=== PATIENT | male | born 1965 | race Caucasian/White ===

== ENCOUNTER 2016-08-18 22:13 | Emergency (ER) | payer MEDICARE ==
[~2016-08-18] VITALS: Ht 182.9 cm; Wt 78.0 kg
[~2016-08-18 22:13] MED LIST: CLON0.2T PO; MELO-1 PO; PERC7.5T13 PO; ZANA4CAP PO
[2016-08-18 22:25] VITALS: BP 85/60; PULSE 89; RESP 16; TEMP 98; O2SAT 97
[2016-08-18] MEDS ORDERED: DIPHTH/TETANUS/ACEL PERTUSSIS (BOOSTER) 0.5 ML VIAL/PFS IM ONE (22:30)
[2016-08-18] MEDS ORDERED: SODIUM CHLOR 0.9% 1000 ML INJ 1,000 ML IV ONE (22:30)
[2016-08-18] MEDS ORDERED: SODIUM CHLORIDE 0.9% FLUSH 5 ML FLUSH IVF PRN (22:30)
[2016-08-18 22:33] VITALS: BP 99/63; PULSE 74; RESP 16; O2SAT 97
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
[2016-08-18 23:13] LABS: AUTOMATED NEUTROPHIL # 10.8 TH/MM3 (1.8-7.7); BASOPHIL # 0.4 TH/MM3 (0-0.2); BASOPHIL % 2.9 % (0.0-2.0); EOSINOPHIL # 0.1 TH/MM3 (0-0.4); EOSINOPHIL % 0.7 % (0.0-4.0); HEMATOCRIT 41.4 % (39.0-51.0); LYMPH % 21.8 % (9.0-44.0); LYMPHOCYTE # 3.3 TH/MM3 (1.0-4.8); MEAN CELL VOLUME 95.7 FL (80.0-100.0); MEAN CORPUSCULAR HEMOGLOBIN 33.5 PG (27.0-34.0); MONO % 4.4 % (0.0-8.0); NEUT % 70.2 % (16.0-70.0); RED BLOOD COUNT 4.32 MIL/MM3 (4.50-5.90); WHITE BLOOD COUNT 15.3 TH/MM3 (4.0-11.0)
[2016-08-18 23:14] LABS: HEMO FLAGS DIFF FINAL
[2016-08-18 23:15] LABS: PLATELET COUNT 172 TH/MM3 (150-450)
[2016-08-18 23:37] VITALS: BP 99/63; PULSE 72; RESP 16; O2SAT 97
[2016-08-18 23:38] LABS: CHLORIDE 110 MEQ/L (98-107); POTASSIUM 3.8 MEQ/L (3.5-5.1); SODIUM (NA) 142 MEQ/L (136-145)
[2016-08-18 23:40] VITALS: BP 138/75; PULSE 61; RESP 16; O2SAT 98
[2016-08-18 23:42] LABS: ANION GAP 7 MEQ/L (5-15); BICARBONATE 25.2 MEQ/L (21.0-32.0); BLOOD UREA NITROGEN 22 MG/DL (7-18)
[2016-08-18 23:45] LABS: GLOMERULAR FILTRATION RATE 49 ML/MIN (>89)
[2016-08-18 23:46] LABS: APTT (PATIENT) 24.4 SEC (24.3-30.1); PROTHROMBIN TIME - PATIENT 10.7 SEC (9.8-11.6)
[2016-08-19 00:15] VITALS: BP 171/93; PULSE 60; RESP 16; O2SAT 97
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
[2016-08-19] MEDS ORDERED: IOHEXOL 350 MG/ML 10 ML VIAL (for RAD DIAG) IV ONE (00:33)
--- NOTE | 2016-08-19 00:33 | RADHPO ---
EXAM DATE/TIME: 08/18/2016 23:57 [facility] COMPARISON: CT THORAX W CONTRAST, August 18, 2016, 23:57. INDICATIONS : Fall. Mid chest and upper abdominal trauma. IV CONTRAST: 96 cc Omnipaque 350 (iohexol) IV ; Cumulative dose for multiple exams. ORAL CONTRAST: No oral contrast ingested. RADIATION DOSE: 13.49 CTDIvol (mGy) ; Combined studies - Thorax/Abdomen/Pelvis MEDICAL HISTORY : Hypertension. Hepatitis C. SURGICAL HISTORY : None. ENCOUNTER: Initial ACUITY: 1 day PAIN SCALE: 8/10 LOCATION: upper quadrant TECHNIQUE: Volumetric scanning of the abdomen and pelvis was performed. Using automated exposure control and ad justment of the mA and/or kV according to patient size, radiation dose was kept as low as reasonably achievable to obtain optimal diagnostic quality images. FINDINGS: LOWER LUNGS: The visualized lower lungs are clear. LIVER: Homogeneous density without lesion. There is no dilation of the biliary tree. No calcified gallston es. SPLEEN: Calcified granulomas are present. PANCREAS: Within normal limits. KIDNEYS: Normal in size and shape. There is no mass, stone or hydronephrosis. ADRENAL GLANDS: Within normal limits. VASCULAR: No aneurysm. Atherosclerotic calcifications are seen. BOWEL/MESENTERY: No evidence for bowel obstruction. A small amount of free fluid is noted within the pelvis. ABDOMINAL WALL: Within normal limits. RETROPERITONEUM: There is no lymphadenopathy. BLADDER: No wall thickening or mass. REPRODUCTIVE: Within normal limits. INGUINAL: There is no lymphadenopathy or hernia. MUSCULOSKELETAL: Degenerative changes of the spine and nonacute T11 compression deformity. CONCLUSION: 1. Trace free fluid within the pelvis. 2. Otherwise unremarkable. Murray Walden MD on August 19, 2016 at 0:30 Board Certified Radiologist. This report was verified electronically.
[2016-08-19 01:10] VITALS: BP 180/106; PULSE 58; RESP 16; O2SAT 97
[2016-08-19 01:11] LABS: GLUCOSE,URINE NEG (NEG); KETONE, URINE NEG (NEG); NITRITE,URINE NEG (NEG); PH, URINE 5.5 (5.0-8.5)
[2016-08-19] MEDS ORDERED: KETOROLAC TROMETHAMINE 30 MG/ML (IVP) VIAL IV PUSH ONE (01:15)
[2016-08-19 01:19] LABS: BLOOD, URINE MOD (NEG)
[2016-08-19 01:21] LABS: URINE COLOR YELLOW (YELLW/STRAW); WBC, URINE 0-2 /hpf (0-5)
[2016-08-19 01:22] LABS: COMMENT (UR) CULT NOT INDICATED; CULTURE IF INDICATED CULT NOT INDICATED; SQUAMOUS EPITHELIAL CELL URINE 0-5 /hpf (0-5)
[2016-08-19 01:47] VITALS: BP 152/96; PULSE 60; RESP 16; O2SAT 100
[2016-08-19 01:59] VITALS: RESP 16
--- NOTE | 2016-08-19 13:27 | EKG ---
Date Performed: 08/18/2016 Time Performed: 22:35:16 PTAGE: 50 years EKG: Sinus rhythm Extensive ST-T changes may be due to myocardial ischemia Abnormal ECG PREVIOUS TRACING : 03/01/2016 12.06 Compared to previous tracing, T wave changes are now more p ronounced. DOCTOR: Vernon Alvarado Interpretating Date/Time 08/19/2016 13:26:34
== END 2016-08-19 02:13 | disposition home or self-care (01) ==
LOC: PHED 22:13
DX: S30.1XXA Contusion of abdominal wall, initial encounter (principal); S20.212A Contusion of left front wall of thorax, initial encounter; F11.20 Opioid dependence, uncomplicated; S30.811A Abrasion of abdominal wall, initial encounter; S20.312A Abrasion of left front wall of thorax, initial encounter; R94.31 Abnormal electrocardiogram [ECG] [EKG]; W18.39XA Other fall on same level, initial encounter; Y93.K1 Activity, walking an animal; I10 Essential (primary) hypertension; E78.5 Hyperlipidemia, unspecified; R73.03 Prediabetes; F17.200 Nicotine dependence, unspecified, uncomplicated; Z87.39 Personal history of other diseases of the musculoskeletal system and connective tissue; Z86.59 Personal history of other mental and behavioral disorders; Z87.19 Personal history of other diseases of the digestive system; Z87.448 Personal history of other diseases of urinary system; Z86.69 Personal history of other diseases of the nervous system and sense organs
CPT/HCPCS: 70450; 71260; 74177; 80048; 81001; 83690; 84484; 85025; 85610; 85730; 86850; 86900; 86901; 90471; 90715; 93005; 96374; 99285; J1885; J7030; Q9967

== ENCOUNTER 2016-10-10 03:26 | Inpatient (IN) | payer MEDICARE, OTHER ==
[~2016-10-10] VITALS: Ht 182.9 cm; Wt 73.9 kg
[~2016-10-10 03:26] MED LIST changes: -ZANA4CAP PO
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
[2016-10-10 06:03] VITALS: BP 104/56; PULSE 88; RESP 18; TEMP 98.4; O2SAT 99
[2016-10-10 06:41] VITALS: BP 117/68; PULSE 86; RESP 17; O2SAT 97
[2016-10-10 11:53] VITALS: BP 139/84; PULSE 73; RESP 18; O2SAT 98
[2016-10-10 13:44] LABS: AMPHETAMINE, URINE NEG (NEG); BARBITURATES, URINE NEG (NEG); COCAINE, URINE NEG (NEG)
[2016-10-10 14:46] VITALS: BP 117/78; PULSE 84; RESP 18; O2SAT 98
[2016-10-10 14:51] LABS: AUTOMATED NEUTROPHIL # 4.2 TH/MM3 (1.8-7.7); BASOPHIL # 0.1 TH/MM3 (0-0.2); BASOPHIL % 0.9 % (0.0-2.0); EOSINOPHIL # 0.2 TH/MM3 (0-0.4); EOSINOPHIL % 2.2 % (0.0-4.0); HEMO FLAGS DIFF FINAL; LYMPH % 29.6 % (9.0-44.0); MEAN CELL VOLUME 96.3 FL (80.0-100.0); MEAN CORPUSCULAR HEMOGLOBIN 33.4 PG (27.0-34.0); MEAN CORPUSCULAR HGB CONC 34.7 % (32.0-36.0); MONO % 5.9 % (0.0-8.0); NEUT % 61.4 % (16.0-70.0); PLATELET COUNT 195 TH/MM3 (150-450); RED BLOOD COUNT 3.84 MIL/MM3 (4.50-5.90); RED CELL DISTRIBUTION WIDTH 13.4 % (11.6-17.2); WHITE BLOOD COUNT 6.9 TH/MM3 (4.0-11.0)
[2016-10-10 16:21] LABS: ALKALINE PHOSPHATASE 79 U/L (45-117); TOTAL BILIRUBIN ADULT 0.5 MG/DL (0.2-1.0)
[2016-10-10 16:26] LABS: ALT (GPT) 47 U/L (12-78); ANION GAP 7 MEQ/L (5-15); AST (GOT) 34 U/L (15-37); BICARBONATE 28.4 MEQ/L (21.0-32.0); BLOOD UREA NITROGEN 14 MG/DL (7-18); CHLORIDE 107 MEQ/L (98-107); GLOMERULAR FILTRATION RATE 90 ML/MIN (>89); POTASSIUM 4.7 MEQ/L (3.5-5.1); SODIUM (NA) 142 MEQ/L (136-145)
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
[2016-10-10] MEDS ORDERED: ALUMINUM/MAGNESIUM/SIMETH 30 ML CUP PO PRN (17:45)
[2016-10-10] MEDS ORDERED: ACETAMINOPHEN 325 MG TAB PO PRN (17:45)
[2016-10-10] MEDS ORDERED: MAGNESIUM HYDROXIDE SUSP 30 ML CUP PO PRN (17:45)
[2016-10-10 18:31] VITALS: BP 101/56; PULSE 80; RESP 18; O2SAT 96
[2016-10-10 20:19] VITALS: BP 126/81; PULSE 81; RESP 18; TEMP 97.6; O2SAT 98
[2016-10-10] MEDS: ALPRAZolam 1 MG TAB PO PRN (21:01)
--- NOTE | 2016-10-10 23:22 | PD.CONS ---
[facility] Request[facility] By Primary Care Physician No Primary Care Physician Diagnoses: Past Family Social History Allergies: Coded Allergies: No Known Allergies (Unverified , 08/18/16) Physical Exam Vital Signs Vital Signs Date Time Temp Pulse Resp B/P Pulse Ox O2 Delivery O2 Flow Rate FiO2 10/10/16 20:19 97.6 81 18 126/81 98 10/10/16 18:31 80 18 101/56 96 Room Air 10/10/16 14:46 84 18 117/78 98 Room Air 10/10/16 11:53 73 18 139/84 98 Room Air 10/10/16 06:41 86 17 117/68 97 Room Air 10/10/16 06:03 98.4 88 18 104/56 99 Room Air Physical Exam TEMPLATE: GENERAL: This is a well-nourished, well-developed patient, in no apparent distress. SKIN: No rashes, ecchymoses or lesions. Cool and dry. HEAD: Atraumatic. Normocephalic. EYES: No scleral icterus. No injection or drainage. ENT: Nose without bleeding, purulent drainage. NECK: Trachea midline. No JVD or lymphadenopathy. CARDIOVASCULAR: Regular rate and rhythm without murmurs, gallops, or rubs. RESPIRATORY: Clear to auscultation. Breath sounds equal bilaterally. No wheezes , rales, or rhonchi. GASTROINTESTINAL: Abdomen soft, non-tender, nondistended. No guarding. MUSCULOSKELETAL: Extremities without clubbing, cyanosis, or edema. No calf tenderness. NEUROLOGICAL: Awake and alert. Motor and sensory grossly within normal limits. Normal speech. . Laboratory Laboratory Tests Test 10/10/16 10/10/16 13:05 13:35 Urine Opiates Screen NEG Urine Barbiturates Screen NEG Urine Amphetamines Screen NEG Urine Benzodiazepines Screen POS Urine Cocaine Screen NEG Urine Cannabinoids Screen NEG White Blood Count 6.9 Red Blood Count 3.84 Hemoglobin 12.8 Hematocrit 37.0 Mean Corpuscular Volume 96.3 Mean Corpuscular Hemoglobin 33.4 Mean Corpuscular Hemoglobin 34.7 Concent Red Cell Distribution Width 13.4 Platelet Count 195 Mean Platelet Volume 8.2 Neutrophils (%) (Auto) 61.4 Lymphocytes (%) (Auto) 29.6 Monocytes (%) (Auto) 5.9 Eosinophils (%) (Auto) 2.2 Basophils (%) (Auto) 0.9 Neutrophils # (Auto) 4.2 Lymphocytes # (Auto) 2.0 Monocytes # (Auto) 0.4 Eosinophils # (Auto) 0.2 Basophils # (Auto) 0.1 CBC Comment DIFF FINAL Differential Comment Sodium Level 142 Potassium Level 4.7 Chloride Level 107 Carbon Dioxide Level 28.4 Anion Gap 7 Blood Urea Nitrogen 14 Creatinine 0.89 Estimat Glomerular Filtration 90 Rate Random Glucose 99 Calcium Level 8.8 Total Bilirubin 0.5 Aspartate Amino Transf 34 (AST/SGOT) Alanine Aminotransferase 47 (ALT/SGPT) Alkaline Phosphatase 79 Total Protein 6.1 Albumin 3.1 Salicylates Level 3.6 Ethyl Alcohol Level LESS THAN 3 Result Diagram: 10/10/16 1335 10/10/16 1335 Sierra Mckenzie [facility] Oct 10, 2016 23:22
[2016-10-11 06:04] VITALS: BP 142/87; PULSE 73; RESP 18; TEMP 98.4; O2SAT 98
[2016-10-11 07:36] LABS: ANION GAP 6 MEQ/L (5-15); BICARBONATE 25.8 MEQ/L (21.0-32.0); BLOOD UREA NITROGEN 12 MG/DL (7-18); CHLORIDE 109 MEQ/L (98-107); GLOMERULAR FILTRATION RATE 141 ML/MIN (>89); POTASSIUM 4.4 MEQ/L (3.5-5.1); SODIUM (NA) 141 MEQ/L (136-145)
[2016-10-11 07:39] LABS: HDL CHOLESTEROL 33.6 MG/DL (40.0-60.0); LDL CHOLESTEROL 95 MG/DL (0-99)
[2016-10-11] MEDS: MELOXICAM 15 MG TAB PO SCH (08:57)
[2016-10-11] MEDS: ALPRAZolam 1 MG TAB PO PRN (08:57)
[2016-10-11] MEDS ORDERED: cloNIDine HCL 0.2 MG TAB PO SCH (09:00)
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
--- NOTE | 2016-10-11 15:16 | HHI.HP ---
Provisional Diagnosis Admission Date Oct 10, 2016 at 17:44 [place]. Adjustment disorder with mixed disturbance of emotions and conduct Certification of Person's Competence To Provide Express and Informed Consent I have personally examined Gilbert Elizalde , a person being served at [facility] on, Oct 11, 2016 15:09. Express and informed consent means consent voluntarily given in writing, by a competent person, after sufficient explanation and disclosure of the subject matter involved to enable the person to make a knowing and willful decision without any element of force, fraud, deceit, duress, or other form of constraint or coercion. This person is 18 years of age or older, is not now known to be incompetent to consent to treatment with a guardian advocate, and does not have a health care surrogate or proxy currently making medical treatment decisions. I have found this person to be one of the following: [X] Competent to provide express and informed consent, as defined above, for voluntary admission to this facility and is competent to provide express and informed consent for treatment. He/she has the consistent capacity to make well reasoned, willful, and knowing decisions concerning his or her medical or mental health treatment. The person fully and consistently understands the purpose of the admission for examination/placement and is fully capable of personally exercising all rights [place] Incompetent to provide express and informed consent to voluntary admission, and this is incompetent to provide express and informed consent to treatment. The person must be transferred to involuntary status and a petition for a guardian advocate filed with the Circuit Court. [] Refusing to provide express and informed consent to voluntary admission but is competent to provide express and informed consent for treatment. The person must be discharged or transferred to involuntary status. Form shall be completed within 24 hours of a person's arrival at the receiving facility and filed in the clinical record of each person: 1. Admitted on a voluntary basis 2. Permitted to provide express and informed consent to his/her own treatment 3. Allowed to transfer from involuntary to voluntary status 4. Prior to permitting a person to consent to his or her own treatment after having been previously found incompetent to consent to treatment. History of Present Illness Capacity: Has Capacity HPI This is a 50-year-old male with a long history of chronic pain, being treated with significant doses of opiate narcotics and Xanax and muscle relaxers, etc. He got into a serious verbal altercation with his son and claims that his son reported that he was suicidal to law enforcement. Patient denies being suicidal but does admit that he becomes frustrated, depressed and distressed at times due to the nature of his chronic pain and physical disabilities. He reported his multiple medicines to this physician, which include Xanax 2 mg 3 times a day and Percocet 10 mg 4 times a day. These medicines are prescribed by Dr. Singh, a psychiatrist and Dr. Dexter, a neurologist. Patient is giving permission for his medicines to be checked by pharmacy and by his sister. He is calm and pleasant and cooperative at this time. Review of Systems ROS Limitations: Clinical Condition Past Psych History Psychological trauma history Treated by Dr. Singh for mood disorder symptoms and anxiety symptoms. Violence risk - others (6 mos) Minimal Violence risk - self (6 mos) Minimal, based on patient report at this time. Substance Abuse History Drugs/Alcohol past 12 months Denied at this time. Past Family Social History Coded Allergies: No Known Allergies (Unverified , 08/18/16) Reported Medications Clonidine 0.2 Mg Tab0.2 Mg PO DAILY #60 TAB Ref 0 04/22/16 Meloxicam 15 Mg Tab15 Mg PO DAILY #30 TAB Ref 0 04/22/16 Oxycodone-Acetaminophen (Percocet)7.5-325 mg Tab1 Tab PO Q6H Ref 0 04/22/16 Current Medications Medications (Trade) Dose Ordered Sig/Gaby Route Start Time Stop Time Status Last Admin (Tylenol) 650 mg Q4H PRN PO 10/10/16 17:45 (Milk Of Magnesia Liq) 30 ml DAILY PRN PO 10/10/16 17:45 (Mag-Al Plus Susp Liq) 30 ml Q6H PRN PO 10/10/16 17:45 (Catapres) 0.2 mg DAILY PO 10/11/16 09:00 10/11/16 08:57 (Mobic) 15 mg DAILY PO 10/11/16 09:00 10/11/16 08:57 (Xanax) 1 mg Q6H PRN PO 10/10/16 19:30 10/11/16 08:57 Family History Significant for mood and anxiety disorders, primarily with the patient's sister. She is also treated for chronic pain. Social History Patient is on Social Security disability. He is not employed. He denies any recent use of illicit drugs or alcohol. He does acknowledge his chronic use of pain medicines and Xanax. He sometimes has his son living with him. Patient's Strengths (min. 2) Verbal and resilient. Physical Exam GENERAL: SKIN: Warm and dry. HEAD: Normocephalic. EYES: No scleral icterus. No injection or drainage. NECK: Supple, trachea midline. No JVD or lymphadenopathy. CARDIOVASCULAR: Regular rate and rhythm without murmurs, gallops, or rubs. RESPIRATORY: Breath sounds equal bilaterally. No accessory muscle use. GASTROINTESTINAL: Abdomen soft, non-tender, nondistended. MUSCULOSKELETAL: No cyanosis, or edema. BACK: Nontender without obvious deformity. No CVA tenderness. Vital Signs Vital Signs Date Time Temp Pulse Resp B/P Pulse Ox O2 Delivery O2 Flow Rate FiO2 10/11/16 06:04 98.4 73 18 142/87 98 10/10/16 18:31 Room Air I/O 10/10/16 10/10/16 10/11/16 08:00 16:00 00:00 Intake Total 946 ml Output Total 180 ml Balance 766 ml Mental Status Examination Speech: Unremarkable Orientation: x3 Memory: Unremarkable Thought Process: Organized, Goal Directed Thought Content: Unremarkable Hallucination Type: None Attention and Concentration: Good Suicidal Ideation: No Previous Suicide Attempts: No Homicidal Ideation: No Previous Homicide Attempts: No Insight: Fair Judgment: WNL Affect: Good Mood: Appropriate Motor Activity: Normal gait Assessment & Plan Problem List: (1) Adjustment disorder with mixed disturbance of emotions and conduct ICD Code: F43.25 Assessment & Plan Estimated LOS: 1-2 days 50-year-old male with a history of chronic pain and multiple other physical problems, admitted for getting into a verbal altercation with his son and allegedly making suicidal threats. At this time the patient denies being suicidal and is verbally barbara for safety. He is allowing this physician and staff to consult with his doctors, sister and the pharmacy. Over the course of the next 24 hours, if it is determined that the patient is indeed emotionally stable and physically stable and that his story is accurate, he can be released per his own request. However, due to the patient's chronic pain and allegedly suicidal threats, this physician feels obligated to consult healthcare providers and his sister regarding his behavior and medications and case loader operator has been instructed to do so. In the meantime we will continue his medicines as previously prescribed, according to the pharmacy, which was contacted. This is to prevent withdrawal. Khari Motta MD Oct 11, 2016 15:16
[2016-10-11 16:15] LABS: HEMOGLOBIN A1b 1.9 %; HEMOGLOBIN LA1C 2.2 %; HEMOGLOBIN P3 5.5 %
[2016-10-11] MEDS: ALPRAZolam 1 MG TAB PO SCH (16:57)
[2016-10-11] MEDS: oxyCODONE/ACETAMINOPHEN 10 MG/325 MG TAB PO SCH ×2 (16:58→22:21)
[2016-10-11 18:03] VITALS: BP 146/77; PULSE 70; RESP 17; TEMP 97.8; O2SAT 97
[2016-10-11] MEDS: PREGABALIN 75 MG CAP PO SCH ×2 (21:23→22:24)
[2016-10-11] MEDS: cloNIDine HCL 0.2 MG TAB PO SCH (21:23)
[2016-10-12] MEDS: oxyCODONE/ACETAMINOPHEN 10 MG/325 MG TAB PO SCH ×2 (04:31→09:18)
[2016-10-12 06:05] VITALS: BP 133/84; PULSE 80; RESP 18; TEMP 97; O2SAT 96
[2016-10-12] MEDS: cloNIDine HCL 0.2 MG TAB PO SCH (09:18)
[2016-10-12] MEDS: MELOXICAM 15 MG TAB PO SCH (09:19)
[2016-10-12] MEDS: ALPRAZolam 1 MG TAB PO SCH (09:19)
[2016-10-12 12:50] LABS: INDIRECT BILIRUBIN 0.3 MG/DL (0.0-0.8); TOTAL BILIRUBIN ADULT 0.4 MG/DL (0.2-1.0)
--- NOTE | 2016-10-12 12:51 | HHI.DS ---
Psychiatry Discharge Summary Inpatient Psychiatric care?: Yes Advance Directive: No Mental Health AdvanceDirective: No Health Care Proxy: No Admission Admission Date Oct 10, 2016 at 17:44 Admission Diagnosis: (1) Adjustment disorder with mixed disturbance of emotions and conduct ICD Code: F43.25 Brief History This is a 50-year-old male with a long history of chronic pain, being treated with significant doses of opiate narcotics and Xanax and muscle relaxers, etc. He got into a serious verbal altercation with his son and claims that his son reported that he was suicidal to law enforcement. Patient denies being suicidal but does admit that he becomes frustrated, depressed and distressed at times due to the nature of his chronic pain and physical disabilities. He reported his multiple medicines to this physician, which include Xanax 2 mg 3 times a day and Percocet 10 mg 4 times a day. These medicines are prescribed by Dr. Singh, a psychiatrist and Dr. Dexter, a neurologist. Patient is giving permission for his medicines to be checked by pharmacy and by his sister. He is calm and pleasant and cooperative at this time. Tobacco Use In Past 30 Days: No Tobacco Past 30 Days Alcohol Use: Never Hospital Course Participated actively in individual and group therapies. No procedures were performed or medication changes were made. Patient did well and at the time of discharge was stable and looking forward to his release. Results Blood Pressure 133 / 84 Vital Signs Date Time Temp Pulse Resp B/P Pulse Ox O2 Delivery O2 Flow Rate FiO2 10/12/16 06:05 97.0 80 18 133/84 96 10/10/16 18:31 Room Air Laboratory Tests Test 10/10/16 10/10/16 10/11/16 13:05 13:35 06:30 Urine Benzodiazepines Screen POS (NEG) Red Blood Count 3.84 MIL/MM3 (4.50-5.90) Hemoglobin 12.8 GM/DL (13.0-17.0) Hematocrit 37.0 % (39.0-51.0) Total Protein 6.1 GM/DL (6.4-8.2) Albumin 3.1 GM/DL (3.4-5.0) Chloride Level 109 MEQ/L (98-107) Triglycerides Level 174 MG/DL (42-150) HDL Cholesterol 33.6 MG/DL (40.0-60.0) Laboratory Results Test 10/11/16 06:30 Hemoglobin A1c 5.2 % (4.3-6.0) Triglycerides Level 174 MG/DL (42-150) Cholesterol Level 163 MG/DL (120-200) LDL Cholesterol 95 MG/DL (0-99) HDL Cholesterol 33.6 MG/DL (40.0-60.0) Summary of Procedures none Pending results at discharge: No Medications # of Antipsychotic meds at D/C: 0 Approp Antipsych med options 1 - Minimum of three failed multiple trials of monotherapy. 2 - Documented plan to taper to monotherapy due to previous use of multiple meds OR cross-taper in progress at D/C. 3 - Documentation of augmentation of Clozapine. 4 - Justification other than those listed in allowable values 1-3, document here : Discharge Discharge Date: Oct 12, 2016 Discharge Diagnosis: (1) Adjustment disorder with mixed disturbance of emotions and conduct Diagnosis: Principal ICD Code: F43.25 Mental Status Exam at Disch At the time of discharge the patient demonstrated no suicidal or homicidal ideation, plan or intention. No psychotic symptoms and cognition was completely intact. Verbally contracted for safety. Pt Condition on Discharge: Stable Discharge Disposition: Discharge Home Discharge Instructions Diet Instructions: As Tolerated, No Restrictions Activities you can perform: Regular-No Restrictions Scheduled Appointment: Dr. Chavarria Appointment Date: Oct 15, 2016 Appointment Time: 12:20 Discharge Time <= 30 minutes Discharge/Advance Care Plan Health Problems: (1) Adjustment disorder with mixed disturbance of emotions and conduct Goals to promote your health * To prevent worsening of your condition and complications * To maintain your health at the optimal level Directions to meet your goals Take your medications as prescribed Follow your dietary instruction Follow activity as directed Keep your appointments as scheduled Take your immunizations and boosters as scheduled If your symptoms worsen call your PCP, if no PCP go to Urgent Care Center or Emergency Room For 14/01 questions related to your inpatient stay or results of tests pending at discharge, please contact Dr. Khari Motta at Smoking is Dangerous to Your Health. Avoid second hand smoking Khari Motta MD Oct 12, 2016 12:51
[2016-10-12] MEDS ORDERED: MELO-1 PO (12:54)
[2016-10-12] MEDS ORDERED: OXYC1TAB36 PO (12:54)
[2016-10-12] MEDS ORDERED: XANA1TAB2 PO (12:54)
[2016-10-12] MEDS ORDERED: CLON.2 PO (12:54)
[2016-10-12] MEDS ORDERED: TIZA4 PO (12:54)
[2016-10-12] MEDS ORDERED: LYRI75CA PO (12:54)
--- NOTE | 2016-10-22 10:56 | HHI.DS ---
Psychiatry Discharge Summary Inpatient Psychiatric care?: Yes Advance Directive: No Mental Health AdvanceDirective: No Health Care Proxy: No Admission Admission Date Oct 10, 2016 at 17:44 Admission Diagnosis: (1) Adjustment disorder with mixed disturbance of emotions and conduct ICD Code: F43.25 Brief History This is a 50-year-old male with a long history of chronic pain, being treated with significant doses of opiate narcotics and Xanax and muscle relaxers, etc. He got into a serious verbal altercation with his son and claims that his son reported that he was suicidal to law enforcement. Patient denies being suicidal but does admit that he becomes frustrated, depressed and distressed at times due to the nature of his chronic pain and physical disabilities. He reported his multiple medicines to this physician, which include Xanax 2 mg 3 times a day and Percocet 10 mg 4 times a day. These medicines are prescribed by Dr. Singh, a psychiatrist and Dr. Dexter, a neurologist. Patient is giving permission for his medicines to be checked by pharmacy and by his sister. He is calm and pleasant and cooperative at this time. Tobacco Use In Past 30 Days: No Tobacco Past 30 Days Alcohol Use: Never Hospital Course Patient participated in individual and group therapies. He repeatedly denied any suicidal ideation, plan or intention. He was observed and evaluated over the course of the short hospitalization. It was felt he could be managed on an outpatient basis. No procedures were performed. Results Blood Pressure 133 / 84 None at time of discharge None pending at time of discharge Summary of Procedures None Pending results at discharge: No Medications # of Antipsychotic meds at D/C: 0 Approp Antipsych med options 1 - Minimum of three failed multiple trials of monotherapy. 2 - Documented plan to taper to monotherapy due to previous use of multiple meds OR cross-taper in progress at D/C. 3 - Documentation of augmentation of Clozapine. 4 - Justification other than those listed in allowable values 1-3, document here : Discharge Discharge Date: Oct 12, 2016 Discharge Diagnosis: (1) Adjustment disorder with mixed disturbance of emotions and conduct Diagnosis: Principal ICD Code: F43.25 Mental Status Exam at Disch No suicidal or homicidal ideation, plan or intent. No psychotic symptoms. Cognition was intact and patient verbally contracted for safety. Pt Condition on Discharge: Stable Discharge Disposition: Discharge Home Discharge Instructions Diet Instructions: As Tolerated, No Restrictions Activities you can perform: Regular-No Restrictions Scheduled Appointment: Dr. Chavarria Appointment Date: Oct 15, 2016 Appointment Time: 12:20 Discharge Time <= 30 minutes Discharge/Advance Care Plan Health Problems: (1) Adjustment disorder with mixed disturbance of emotions and conduct Goals to promote your health * To prevent worsening of your condition and complications * To maintain your health at the optimal level Directions to meet your goals Take your medications as prescribed Follow your dietary instruction Follow activity as directed Keep your appointments as scheduled Take your immunizations and boosters as scheduled If your symptoms worsen call your PCP, if no PCP go to Urgent Care Center or Emergency Room For 14/01 questions related to your inpatient stay or results of tests pending at discharge, please contact Dr. Khari Motta at Smoking is Dangerous to Your Health. Avoid second hand smoking Khari Motta MD October 22, 2016 10:56
== END 2016-10-12 15:35 | disposition home or self-care (01) | DRG 882 ==
LOC: NEPJ 03:26 → NEDA 17:44 → H260 20:13
PROVIDERS: ADMIT Psychiatry & Neurology Psychiatry; ATTEND Psychiatry & Neurology Psychiatry
DX: F43.25 Adjustment disorder with mixed disturbance of emotions and conduct (principal); B19.10 Unspecified viral hepatitis B without hepatic coma; I10 Essential (primary) hypertension; G62.9 Polyneuropathy, unspecified; G89.29 Other chronic pain; M19.90 Unspecified osteoarthritis, unspecified site; E78.00 Pure hypercholesterolemia, unspecified; H91.90 Unspecified hearing loss, unspecified ear; F17.210 Nicotine dependence, cigarettes, uncomplicated; E78.5 Hyperlipidemia, unspecified; M51.36 Other intervertebral disc degeneration, lumbar region; G43.909 Migraine, unspecified, not intractable, without status migrainosus; D64.9 Anemia, unspecified; R73.03 Prediabetes
CPT/HCPCS: 80048; 80053; 80061; 80076; 80307; 83036; 85025; 99284